=== PATIENT | female | born 1985 | race American Indian/Alaskan Native ===

== ENCOUNTER 2021-09-02 02:20 | Emergency (ER) | payer SELFPAY ==
[2021-09-02 02:56] VITALS: BP 141/94
[2021-09-02] MEDS ORDERED: MORPHINE 4 MG/1 ML INJ IV ONE (03:14)
[2021-09-02] MEDS ORDERED: FAMOTIDINE 20 MG/2 ML INJ IV ONE (03:14)
[2021-09-02] MEDS ORDERED: ONDANSETRON 4 MG/2 ML INJ IV ONE (03:14)
[2021-09-02 03:54] LABS: Hematocrit 38.1 % (30.3-42.9); Hemoglobin 13.1 gm/dl (10.1-14.3); Mean Corpuscular HGB Conc 35 % (30-34); Mean Corpuscular Volume 89 fl (79-97); Platelet Count 385 K/mm3 (140-440); Red Blood Count 4.29 M/mm3 (3.65-5.03); Red Cell Distribution Width 13.4 % (13.2-15.2)
[2021-09-02 04:03] LABS: Alanine Aminotransferase 8 units/L (7-56); Albumin 4.2 g/dL (3.9-5); Blood Urea Nitrogen 6 mg/dL (7-17); Calcium 8.2 mg/dL (8.4-10.2); Hemolysis Index 4
[2021-09-02 04:08] LABS: BUN/Creatinine Ratio 10
[2021-09-02 04:48] LABS: Anisocytosis 1+; Basophils % (Manual) 0 % (0.0-1.8); Total Cells Counted 100
[2021-09-02 04:49] LABS: Platelet Estimate Consistent w Auto
[2021-09-02 04:51] LABS: Bacteria,Urine 1+ /HPF (Negative); Bilirubin,Urine NEG (Negative); Blood,Urine LG (Negative); Color,Urine Yellow (Yellow); Mucus,Urine 3+ /HPF; Urobilinogen,Urine < 2.0 mg/dL (<2.0)
[2021-09-02 04:59] LABS: RBC,Urine > 182.0 /HPF (0.0-6.0)
--- NOTE | 2021-09-02 05:56 | Emergency Department Report ---
ED Abdominal Pain HPI - General Chief Complaint: Abdominal Pain Stated Complaint: ABD PAIN/VOMITING Source: patient Mode of arrival: Ambulatory Limitations: No Limitations - History of Present Illness Initial Comments: Patient is a A2 36-year-old -[place] female with no past medical history who is 3 days post D&C procedure for elective and who is currently on methotrexate tablets for medical presents to the ED with complaint of acute onset persistent intractable nausea and vomiting and diffuse abdominal pain for the last 24 hours. Patient states that she has not been able to keep anything down in the last 12 hours because of nausea and vomiting. Patient states that the pain in the vomiting have worsened especially in the last 8 hours such that she has not been able to sleep. Patient also complains of vaginal bleeding. Patient denies dizziness, syncope, chest pain or shortness of breath, dysuria, urinary frequency and urgency, back pain, hematemesis, hematochezia, diarrhea, headache, lightheadedness or vaginal discharge. MD Complaint: abdominal pain, other (Nausea and vomiting) -: Sudden, days(s) (3) Location: diffuse Radiation: none Migration to: no migration Severity scale (0 -10): 9 Quality: cramping, sharp Consistency: constant Improves With: nothing Worsens With: vomiting Context: recent surgery/procedure (S/p D&C procedure 3 days ago) Associated Symptoms: denies other symptoms, nausea, vomiting, anorexia. denies: diarrhea, fever, chills, constipation, dysuria, hematemesis, melena, hematuria, syncope - Related Data Previous Rx's Medication Instructions Recorded Last Taken Type Famotidine [Pepcid] 20 mg PO BID #60 tablet 09/02/21 Unknown Rx Ibuprofen [Motrin] 800 mg PO Q8HR PRN #30 tablet 09/02/21 Unknown Rx Ondansetron [Zofran Odt] 4 mg PO Q6HR PRN #20 tab.rapdis 09/02/21 Unknown Rx cephALEXin [Keflex] 500 mg PO Q8HR #30 cap 09/02/21 Unknown Rx traMADoL [Ultram] 50 mg PO Q6HR PRN #12 tablet 09/02/21 Unknown Rx Allergies Allergy/AdvReac Type Severity Reaction Status Date / Time No Known Allergies Allergy Unverified 09/02/21 03:01 ED Review of Systems ROS: Stated complaint: ABD PAIN/VOMITING Other details as noted in HPI Constitutional: denies: chills, fever Eyes: denies: eye pain, eye discharge, vision change ENT: denies: ear pain, throat pain Respiratory: denies: cough, shortness of breath, wheezing Cardiovascular: denies: chest pain, palpitations Endocrine: no symptoms reported Gastrointestinal: abdominal pain, nausea, vomiting. denies: diarrhea Genitourinary: denies: urgency, dysuria, discharge Musculoskeletal: denies: back pain, joint swelling, arthralgia Skin: denies: rash, lesions Neurological: denies: headache, weakness, paresthesias Psychiatric: denies: anxiety, depression Hematological/Lymphatic: denies: easy bleeding, easy bruising ED Past Medical Hx - Past Medical History Previous Medical History?: Yes Additional medical history: Thyroid Disease. - Surgical History Past Surgical History?: Yes - Social History Smoking Status: Never Smoker Substance Use Type: None - Medications Home Medications: Home Medications Medication Instructions Recorded Confirmed Last Taken Type Famotidine [Pepcid] 20 mg PO BID #60 tablet 09/02/21 Unknown Rx Ibuprofen [Motrin] 800 mg PO Q8HR PRN #30 tablet 09/02/21 Unknown Rx Ondansetron [Zofran Odt] 4 mg PO Q6HR PRN #20 tab.rapdis 09/02/21 Unknown Rx cephALEXin [Keflex] 500 mg PO Q8HR #30 cap 09/02/21 Unknown Rx traMADoL [Ultram] 50 mg PO Q6HR PRN #12 tablet 09/02/21 Unknown Rx ED Physical Exam - General Limitations: No Limitations General appearance: alert, in no apparent distress - Head Head exam: Present: atraumatic, normocephalic, normal inspection - Eye Eye exam: Present: normal appearance, PERRL, EOMI Pupils: Present: normal accommodation - ENT ENT exam: Present: normal exam, normal orophraynx, mucous membranes moist, TM's normal bilaterally, normal external ear exam - Neck Neck exam: Present: normal inspection, full ROM. Absent: tenderness - Respiratory Respiratory exam: Present: normal lung sounds bilaterally. Absent: respiratory distress, wheezes, rales, rhonchi, stridor, chest wall tenderness, accessory muscle use, decreased breath sounds, prolonged expiratory - Cardiovascular Cardiovascular Exam: Present: regular rate, normal rhythm, normal heart sounds. Absent: systolic murmur, diastolic murmur, rubs, gallop - GI/Abdominal GI/Abdominal exam: Present: soft, tenderness (Palpable mild diffuse abdominal tenderness), normal bowel sounds. Absent: rebound, hyperactive bowel sounds, hypoactive bowel sounds, organomegaly, bruit, pulsatile mass - Bi-manual exam: Present: other (Pelvic exam deferred at this time) - Extremities Exam Extremities exam: Present: normal inspection, full ROM, normal capillary refill - Back Exam Back exam: Present: normal inspection, full ROM. Absent: tenderness, CVA tenderness (R), CVA tenderness (L), muscle spasm, paraspinal tenderness - Neurological Exam Neurological exam: Present: alert, oriented X3, CN II-XII intact, normal gait, reflexes normal - Psychiatric Psychiatric exam: Present: normal affect, normal mood - Skin Skin exam: Present: warm, dry, intact, normal color. Absent: rash ED Course Vital Signs 09/02/21 09/02/21 02:50 04:17 Temperature 97.8 F Pulse Rate 74 Respiratory 18 16 Rate Blood Pressure 141/94 O2 Sat by Pulse 100 Oximetry ED Medical Decision Making - Lab Data Result diagrams: 09/02/21 03:28 09/02/21 03:28 - Medical Decision Making This is a A2 36-year-old -[place] female with no past medical history who is 3 days post D&C procedure for elective and who is currently on methotrexate tablets for medical presents to the ED with complaint of acute onset persistent intractable nausea and vomiting and diffuse abdominal pain for the last 24 hours. Patient states that she has not been able to keep anything down in the last 12 hours because of nausea and vomiting. Patient states that the pain in the vomiting have worsened especially in the last 8 hours such that she has not been able to sleep. Patient also complains of vaginal bleeding. In the ED, patient is alert and oriented x3 and is not in any distress. Patient was treated for pain in the ED and was given antiemetics. Lab test results were reviewed and are all nonactionable except for mild urinary tract infection in urinalysis. The hCG quant is 6333 at this time. On reevaluation, patient's pain is well controlled medication. Nausea and vomiting is also well controlled in the ED. Patient will discharge home on pain medications, antiemetics and antibiotics and was advised to follow-up with her [facility] physician in 5 to 7 days for reevaluation or return to the ED immediately if symptoms get worse. - Differential Diagnosis Dehydration; GERD; gastroenteritis; gastritis; UTI Critical care attestation.: If time is entered above; I have spent that time in minutes in the direct care of this critically ill patient, excluding procedure time. ED Disposition Clinical Impression: Nausea and vomiting in adult patient, Acute urinary tract infection Abdominal pain Qualifiers: Abdominal location: generalized Qualified Code(s): R10.84 - Generalized abdominal pain Disposition: HOME / SELF CARE / HOMELESS Is pt being admited?: No Does the pt Need Aspirin: No Condition: Stable Instructions: Abdominal Pain (ED), Abdominal Pain, Adult, [id number], Nausea and Vomiting, Adult, [id number], Urinary Tract Infection, Adult, [id number], Abdominal Pain During Additional Instructions: All lab test results were reviewed and are all nonactionable except for urinary tract infection. Therefore take medications with food, drink plenty of fluids, follow-up with your primary care physician or [facility] physician in 5 to 7 days for reevaluation or return to the ED immediately if symptoms get worse. Prescriptions: cephALEXin [Keflex] 500 mg PO Q8HR #30 cap Ibuprofen [Motrin] 800 mg PO Q8HR PRN #30 tablet PRN Reason: Pain , Severe (7-10) Famotidine [Pepcid] 20 mg PO BID #60 tablet traMADoL [Ultram] 50 mg PO Q6HR PRN #12 tablet PRN Reason: Pain Ondansetron [Zofran Odt] 4 mg PO Q6HR PRN #20 tab.rapdis PRN Reason: Nausea Referrals: JAZZMINE DEVLIN MD [Staff Physician] - 3-5 Days [facility] [Provider Group] - 3-5 Days Forms: Work/School Release Form(ED) Time of Disposition: 05:58 Print Language: AUSTRIAN
== END 2021-09-02 06:26 | disposition home or self-care (01) ==
LOC: ED 02:20
DX: N39.0 Urinary tract infection, site not specified (principal); R11.2 Nausea with vomiting, unspecified; Z79.899 Other long term (current) drug therapy
CPT/HCPCS: 36415; 80053; 81001; 83690; 84702; 85007; 85025; 87086; 96374; 96375; 99283; J2270; J2405; J3490

== ENCOUNTER 2021-12-16 04:42 | Emergency (ER) | payer BC | END 2021-12-17 10:18 | disposition left against medical advice (07) | LOC: ED 04:42 | DX: R10.9 Unspecified abdominal pain (principal); Z53.21 Procedure and treatment not carried out due to patient leaving prior to being seen by health care provider ==

== ENCOUNTER 2022-04-21 18:25 | Emergency (ER) | payer BC ==
[2022-04-21 21:04] VITALS: BP 155/91
[2022-04-22] MEDS ORDERED: KETOROLAC 30 MG/1 ML INJ IV ONE (03:29)
[2022-04-22] MEDS ORDERED: ONDANSETRON 4 MG/2 ML INJ IV ONE (03:29)
[2022-04-22] MEDS ORDERED: SODIUM CHLORIDE 0.9% 1000 ML 1,000 ML IV ONE (03:29)
[2022-04-22 04:29] LABS: Basophils # (Auto) 0.1 K/mm3 (0.0-0.1); Basophils % (Auto) 0.7 % (0.0-1.8); Eosinophils % (Auto) 0.1 % (0.0-4.3); Lymphocytes # (Auto) 1.9 K/mm3 (1.2-5.4); Lymphocytes % (Auto) 16.5 % (13.4-35.0); Mean Corpuscular HGB Conc 36 % (30-34); Mean Corpuscular Volume 85 fl (79-97); Monocytes # (Auto) 0.8 K/mm3 (0.0-0.8); Platelet Count 442 K/mm3 (140-440); Red Blood Count 4.55 M/mm3 (3.65-5.03); Red Cell Distribution Width 13.1 % (13.2-15.2)
[2022-04-22 04:32] LABS: Hematocrit 38.8 % (30.3-42.9)
[2022-04-22 04:43] LABS: Alanine Aminotransferase 12 units/L (7-56); Albumin 5.1 g/dL (3.9-5); BUN/Creatinine Ratio 15; Bilirubin,Direct 0.2 mg/dL (0-0.2); Blood Urea Nitrogen 15 mg/dL (7-17); Calcium 9.8 mg/dL (8.4-10.2); Hemolysis Index 4
--- NOTE | 2022-04-22 06:53 | Emergency Department Report ---
ED Abdominal Pain HPI - General Chief Complaint: Abdominal Pain Stated Complaint: ABD PAIN,VOMITING, Time Seen by Provider: 04/22/22 01:53 Source: patient Mode of arrival: Ambulatory Limitations: No Limitations - History of Present Illness MD Complaint: abdominal pain -: Gradual Location: diffuse Radiation: none Migration to: no migration Severity scale (0 -10): 4 Quality: aching, dull Consistency: constant Improves With: nothing Worsens With: nothing, eating Associated Symptoms: nausea. denies: constipation, dysuria, hematuria, anorexia - Related Data Previous Rx's Medication Instructions Recorded Last Taken Type Famotidine [Pepcid] 20 mg PO BID #60 tablet 09/02/21 Unknown Rx Ibuprofen [Motrin] 800 mg PO Q8HR PRN #30 tablet 09/02/21 Unknown Rx Ondansetron [Zofran Odt] 4 mg PO Q6HR PRN #20 tab.rapdis 09/02/21 Unknown Rx cephALEXin [Keflex] 500 mg PO Q8HR #30 cap 09/02/21 Unknown Rx traMADoL [Ultram] 50 mg PO Q6HR PRN #12 tablet 09/02/21 Unknown Rx Hyoscyamine Subl [Levsin Sl 0.125 0.125 mg SL Q4HR PRN #30 tablet 04/22/22 Unknown Rx TAB] Allergies Allergy/AdvReac Type Severity Reaction Status Date / Time No Known Allergies Allergy Unverified 09/02/21 03:01 ED Review of Systems ROS: Stated complaint: ABD PAIN,VOMITING, Other details as noted in HPI Comment: All other systems reviewed and negative ED Past Medical Hx - Past Medical History Previous Medical History?: Yes Additional medical history: Thyroid Disease. GALLSTONES X 2 MONTHS SX SCHEDULED FOR APR 2022 - Surgical History Past Surgical History?: Yes - Social History Smoking Status: Unknown if ever smoked Substance Use Type: None - Medications Home Medications: Home Medications Medication Instructions Recorded Confirmed Last Taken Type Famotidine [Pepcid] 20 mg PO BID #60 tablet 09/02/21 Unknown Rx Ibuprofen [Motrin] 800 mg PO Q8HR PRN #30 tablet 09/02/21 Unknown Rx Ondansetron [Zofran Odt] 4 mg PO Q6HR PRN #20 tab.rapdis 09/02/21 Unknown Rx cephALEXin [Keflex] 500 mg PO Q8HR #30 cap 09/02/21 Unknown Rx traMADoL [Ultram] 50 mg PO Q6HR PRN #12 tablet 09/02/21 Unknown Rx Hyoscyamine Subl [Levsin Sl 0.125 0.125 mg SL Q4HR PRN #30 tablet 04/22/22 Unknown Rx TAB] ED Physical Exam - General Limitations: No Limitations General appearance: alert, in no apparent distress - Head Head exam: Present: atraumatic, normocephalic - Eye Eye exam: Present: normal appearance, PERRL, EOMI Pupils: Present: normal accommodation - ENT ENT exam: Present: normal exam, normal orophraynx, mucous membranes moist - Neck Neck exam: Present: normal inspection, full ROM - Respiratory Respiratory exam: Present: normal lung sounds bilaterally. Absent: respiratory distress, wheezes, rales, rhonchi - Cardiovascular Cardiovascular Exam: Present: regular rate, normal rhythm. Absent: systolic murmur, diastolic murmur, rubs, gallop - GI/Abdominal GI/Abdominal exam: Present: soft, tenderness, normal bowel sounds. Absent: mass, bruit, pulsatile mass, hernia - Extremities Exam Extremities exam: Present: normal inspection - Back Exam Back exam: Present: normal inspection - Neurological Exam Neurological exam: Present: alert, oriented X3 - Psychiatric Psychiatric exam: Present: normal affect, normal mood - Skin Skin exam: Present: warm, dry, intact, normal color. Absent: rash ED Course Vital Signs 04/21/22 21:03 Temperature 97.6 F Pulse Rate 112 H Respiratory 18 Rate Blood Pressure 155/91 O2 Sat by Pulse 98 Oximetry ED Medical Decision Making - Lab Data Result diagrams: 04/22/22 03:39 04/22/22 03:39 Critical care attestation.: If time is entered above; I have spent that time in minutes in the direct care of this critically ill patient, excluding procedure time. ED Disposition Clinical Impression: Chronic abdominal pain, Gallbladder colic Disposition: 01 HOME / SELF CARE / HOMELESS Is pt being admited?: No Does the pt Need Aspirin: No Condition: Stable Instructions: Abdominal Pain, Adult, [id number], Abdominal Pain (ED) Additional Instructions: Please keep your appointment with [facility] tomorrow to be eval uated for your gallbladder surgery later next month. You have been evaluated emergency department today for abdominal pain. Your evaluation did not show evidence of any medical conditions requiring emergent intervention at this time. Your lipase was it was elevated but not to a significant degree significant pancreatitis does not appear to be present at this time please drink plenty of fluids. Please schedule an appointment with your primary care physician. Return to emergency department if you experience worsening uncontrolled pain, fevers of 100.4 or greater, recurrent vomiting, inability to tolerate food or fluids by mouth, bloody stools or vomit, black tarry stools, or any other concerning symptoms. Prescriptions: Hyoscyamine Subl [Levsin Sl 0.125 TAB] 0.125 mg SL Q4HR PRN #30 tablet PRN Reason: Spasms Referrals: RONNIE HALL MD [Primary Care Provider] - 3-5 Days
== END 2022-04-22 07:04 | disposition home or self-care (01) ==
LOC: ED 18:25
DX: K80.20 Calculus of gallbladder without cholecystitis without obstruction (principal); R10.9 Unspecified abdominal pain
CPT/HCPCS: 36415; 80048; 80076; 83690; 84703; 85025; 96361; 96374; 96375; 99283; J1885; J2405